=== PATIENT | female | born 1935 | race Caucasian/White ===

== ENCOUNTER → 2017-01-29 | Outpatient (CLI) | payer MEDICARE, BC ==
[~2017-01-29] MED LIST: DIAZ5TAB PO; IBUP-1222 PO; LEVO100T
== END | disposition home or self-care (01) ==
LOC: CFH 13:46
PROVIDERS: ATTEND Family Medicine
DX: J47.9 Bronchiectasis, uncomplicated (principal); R91.1 Solitary pulmonary nodule; M41.86 Other forms of scoliosis, lumbar region; R93.8 Abnormal findings on diagnostic imaging of other specified body structures
CPT/HCPCS: 71250

== ENCOUNTER → 2017-02-18 | Outpatient (CLI) | payer MEDICARE, BC | END | disposition home or self-care (01) | LOC: CARD 13:10 | PROVIDERS: ATTEND Family Medicine | DX: J84.10 Pulmonary fibrosis, unspecified (principal) | CPT/HCPCS: 94060; 94726; 94729 ==

== ENCOUNTER 2019-04-15 15:31 | Outpatient (CLI) | payer MEDICARE, BC ==
[~2019-04-15 15:31] MED LIST changes: +GABA300C10 PO; +OTHER; +PREG100C PO
== END 2019-04-15 23:59 | disposition home or self-care (01) ==
LOC: CFH 15:31
PROVIDERS: ATTEND Physician Assistant
DX: J84.9 Interstitial pulmonary disease, unspecified (principal); R91.1 Solitary pulmonary nodule; J47.9 Bronchiectasis, uncomplicated; Z87.891 Personal history of nicotine dependence
CPT/HCPCS: 71250

== ENCOUNTER 2019-05-26 16:39 | Inpatient (IN) | payer MEDICARE, BC ==
[~2019-05-26] VITALS: Ht 165.1 cm; Wt 60.5 kg
--- NOTE | 2019-05-26 17:11 | NUR ---
Pt arrives to ed with generalized weakness and increasing shortness of breath. Per pts family since she had pneumonia this year the pt has not recovered well. Pt has lincoln movements but baseline per family. Pt is a/ox4 and normally independant but has needed more help lately to do things. Pt connected to monitors and call light in reach. Awaiting further orders.
[2019-05-26] MEDS ORDERED: SODIUM CHLORIDE 0.9% 1,000 ML IV ONE (17:34)
--- NOTE | 2019-05-26 17:54 | NUR ---
BREAK NOTE: PT. IS RESTING WITH THE CP MONITOR IN PLACE. IV ACCESS ESTABLISHED AND NS IS INFUSING ORDERED. PT. IS RESTING WITH THE SIDERAILS UP X 2 AND THE CALL LIGHT IS IN PLACE. FAMILY IS AT THE BEDSIDE.
[2019-05-26] MEDS ORDERED: SODIUM CHLORIDE FLUSH 10ML SYR IVF ONE (18:00)
[2019-05-26 18:26] LABS: BASOPHILS % (AUTO) 0 % (0-1); EOSINOPHILS # (AUTO) 0.24 x10^3/uL (0-0.4); EOSINOPHILS % (AUTO) 2 % (1-7); LYMPHOCYTES # (AUTO) 0.61 x10^3/uL (1-3.4); LYMPHOCYTES % (AUTO) 5 % (22-44); MD NO; MEAN CORPUSCULAR HGB CONC 32.9 g/dL (32.4-35.8); MEAN CORPUSCULAR VOLUME 91.4 fL (80-100); MEAN PLATELET VOLUME 7.2 fL (7.4-10.4); MONOCYTES # (AUTO) 0.45 x10^3/uL (0.2-0.8); MONOCYTES % (AUTO) 4 % (2-9); NEUTROPHILS # (AUTO) 11.65 x10^3/uL (1.8-6.8); NEUTROPHILS % (AUTO) 90 % (42-75); PLATELET COUNT 470 x10^3/uL (130-400); RED BLOOD COUNT 3.93 x10^6/uL (3.82-5.3); RED CELL DISTRIBUTION WIDTH 14.2 % (9.6-15.2)
[2019-05-26] MEDS ORDERED: AZITHROMYCIN 500 MG in SODIUM CHLORIDE 0.9% 250 ML IV ONE (18:30)
[2019-05-26] MEDS ORDERED: CEFTRIAXONE PMX 1GM/50ML 50 ML IV ONE (18:30)
[2019-05-26 18:36] LABS: INTERNATIONAL NORMALIZED RATIO 1.01 (0.93-1.1); PROTHROMBIN TIME 10.6 Seconds (9.6-11.5)
[2019-05-26 18:37] LABS: ALANINE AMINOTRANSFERASE 26 U/L (12-78); ALBUMIN 1.9 g/dL (3.4-5.0); ANION GAP 8 mmol/L (5-15); CALCIUM 8.3 mg/dL (8.5-10.1); CHLORIDE 104 mmol/L (98-107); CREATININE 2.28 mg/dL (0.55-1.02)
[2019-05-26 18:39] LABS: ALKALINE PHOSPHATASE 104 U/L (45-117); BILIRUBIN,TOTAL 0.5 mg/dL (0.2-1.0); TOTAL PROTEIN 6.2 g/dL (6.4-8.2)
--- NOTE | 2019-05-26 18:54 | NUR ---
Pt BRI Omer [phone] home and [phone] cell
[2019-05-26] MEDS ORDERED: CEFTRIAXONE PMX 1GM/50ML 50 ML ONE (19:04)
[2019-05-26] MEDS ORDERED: ACETAMINOPHEN 325 MG TABLET PO PRN (19:30)
[2019-05-26] MEDS ORDERED: ALBUTEROL/IPRATROPIUM 2.5MG/0.5MG, 3 ML HHN PRN (19:30)
--- NOTE | 2019-05-26 19:46 | NUR ---
report to rosa dukes
[2019-05-26 20:18] VITALS: BP 130/71
[2019-05-26 22:08] LABS: RAPID INFLUENZA A Negative (Negative); RAPID INFLUENZA B Negative (Negative)
[2019-05-26 22:26] LABS: CULTURE INDICATED? YES; MICROSCOPIC INDICATED
[2019-05-27 02:41] VITALS: BP 105/63
[2019-05-27 05:32] LABS: BASOPHILS # (AUTO) 0.04 x10^3/uL (0-0.1); BASOPHILS % (AUTO) 0 % (0-1); EOSINOPHILS % (AUTO) 3 % (1-7); LYMPHOCYTES # (AUTO) 0.49 x10^3/uL (1-3.4); LYMPHOCYTES % (AUTO) 4 % (22-44); MD NO; MEAN CORPUSCULAR HEMOGLOBIN 30.6 pg (27.0-34.8); MEAN CORPUSCULAR HGB CONC 33.4 g/dL (32.4-35.8); MEAN CORPUSCULAR VOLUME 91.7 fL (80-100); MEAN PLATELET VOLUME 7.5 fL (7.4-10.4); MONOCYTES # (AUTO) 0.55 x10^3/uL (0.2-0.8); MONOCYTES % (AUTO) 5 % (2-9); NEUTROPHILS # (AUTO) 10.56 x10^3/uL (1.8-6.8); NEUTROPHILS % (AUTO) 88 % (42-75); PLATELET COUNT 422 x10^3/uL (130-400); RED BLOOD COUNT 3.64 x10^6/uL (3.82-5.3); RED CELL DISTRIBUTION WIDTH 14.3 % (9.6-15.2)
[2019-05-27 05:46] LABS: ANION GAP 5 mmol/L (5-15); CALCIUM 7.8 mg/dL (8.5-10.1); CHLORIDE 106 mmol/L (98-107)
[2019-05-27 05:58] LABS: CREATININE 2.12 mg/dL (0.55-1.02)
[2019-05-27] MEDS: LEVOTHYROXINE 100 MCG TABLET PO SCH (06:29)
[2019-05-27 07:05] VITALS: BP 109/56
[2019-05-27] MEDS ORDERED: LEVOFLOXACIN/PMX 750MG/150ML 150 ML IV SCH (08:00)
[2019-05-27] MEDS: GABAPENTIN 300 MG CAPSULE PO SCH (08:31)
[2019-05-27] MEDS: GUAIFENESIN 200 MG TABLET PO SCH ×3 (11:01→21:58)
[2019-05-27] MEDS ORDERED: ALBUTEROL SULFATE 2.5 MG/3 ML NPPB PRN (11:30)
[2019-05-27] MEDS ORDERED: PHARMACY MAY ADJ FOR RENAL FX MC PRN (12:00)
[2019-05-27] MEDS: SODIUM CHLORIDE 0.9% 1,000 ML IV SCH (12:24)
[2019-05-27] MEDS: CEFTRIAXONE PMX 1GM/50ML 50 ML IV SCH (12:24)
[2019-05-27] MEDS: HEPARIN 5,000 UNITS/ML, 1ML SQ SCH ×2 (12:30→21:58)
[2019-05-27] MEDS: DOXYCYCLINE 100 MG in DEXTROSE 5% 250 ML IV SCH (13:15)
[2019-05-27 14:00] VITALS: BP 124/69
[2019-05-27 16:02] VITALS: BP 124/69
[2019-05-27 19:31] VITALS: BP 156/64
[2019-05-27] MEDS: ONDANSETRON 2MG/ML, 2ML IVPush PRN (22:03)
[2019-05-28] MEDS: DOXYCYCLINE 100 MG in DEXTROSE 5% 250 ML IV SCH ×3 (00:45→22:49)
[2019-05-28 03:00] VITALS: BP 184/88
[2019-05-28 03:21] VITALS: BP 150/75
[2019-05-28] MEDS: GUAIFENESIN 200 MG TABLET PO SCH (05:47)
[2019-05-28] MEDS: LEVOTHYROXINE 100 MCG TABLET PO SCH (05:47)
[2019-05-28] MEDS: HEPARIN 5,000 UNITS/ML, 1ML SQ SCH ×3 (05:48→22:23)
[2019-05-28 05:52] VITALS: BP 152/74
[2019-05-28 06:14] LABS: BASOPHILS # (AUTO) 0.02 x10^3/uL (0-0.1); BASOPHILS % (AUTO) 0 % (0-1); EOSINOPHILS # (AUTO) 0.15 x10^3/uL (0-0.4); EOSINOPHILS % (AUTO) 2 % (1-7); LYMPHOCYTES # (AUTO) 0.58 x10^3/uL (1-3.4); LYMPHOCYTES % (AUTO) 5 % (22-44); MD NO; MEAN CORPUSCULAR HGB CONC 32.8 g/dL (32.4-35.8); MEAN CORPUSCULAR VOLUME 91.7 fL (80-100); MEAN PLATELET VOLUME 7.3 fL (7.4-10.4); MONOCYTES # (AUTO) 0.48 x10^3/uL (0.2-0.8); MONOCYTES % (AUTO) 5 % (2-9); NEUTROPHILS # (AUTO) 9.35 x10^3/uL (1.8-6.8); NEUTROPHILS % (AUTO) 88 % (42-75); PLATELET COUNT 433 x10^3/uL (130-400); RED BLOOD COUNT 3.81 x10^6/uL (3.82-5.3); RED CELL DISTRIBUTION WIDTH 14.3 % (9.6-15.2)
[2019-05-28 06:22] LABS: ANION GAP 9 mmol/L (5-15); CALCIUM 7.9 mg/dL (8.5-10.1); CHLORIDE 102 mmol/L (98-107); CREATININE 2.28 mg/dL (0.55-1.02)
[2019-05-28 07:30] VITALS: BP 153/69
[2019-05-28] MEDS: SODIUM CHLORIDE 0.9% 1,000 ML IV SCH (08:00)
[2019-05-28] MEDS: ONDANSETRON 2MG/ML, 2ML IVPush PRN (09:03)
[2019-05-28] MEDS: GABAPENTIN 300 MG CAPSULE PO SCH (09:03)
[2019-05-28] MEDS: CEFTRIAXONE PMX 1GM/50ML 50 ML IV SCH (11:15)
[2019-05-28 13:10] VITALS: BP 134/66
[2019-05-28 19:35] VITALS: BP 145/75
[2019-05-28] MEDS: GUAIFENESIN ER 600 MG TABLET PO SCH (20:17)
[2019-05-29] MEDS: SODIUM CHLORIDE 0.9% 1,000 ML IV SCH ×2 (01:29→11:52)
[2019-05-29 01:42] VITALS: BP 132/61
[2019-05-29] MEDS ORDERED: LEVOTHYROXINE 100 MCG TABLET PO SCH (06:00)
[2019-05-29] MEDS: LEVOTHYROXINE 112 MCG TABLET PO SCH (06:05)
[2019-05-29] MEDS: HEPARIN 5,000 UNITS/ML, 1ML SQ SCH ×3 (06:06→23:01)
[2019-05-29 07:00] LABS: MEAN CORPUSCULAR HEMOGLOBIN 29.8 pg (27.0-34.8); MEAN CORPUSCULAR HGB CONC 32.4 g/dL (32.4-35.8); MEAN PLATELET VOLUME 7.4 fL (7.4-10.4); PLATELET COUNT 512 x10^3/uL (130-400); RED BLOOD COUNT 3.73 x10^6/uL (3.82-5.3); RED CELL DISTRIBUTION WIDTH 14.5 % (9.6-15.2)
[2019-05-29 07:10] LABS: ANION GAP 9 mmol/L (5-15); CALCIUM 7.8 mg/dL (8.5-10.1); CHLORIDE 105 mmol/L (98-107)
[2019-05-29 07:11] LABS: CREATININE 2.44 mg/dL (0.55-1.02)
[2019-05-29 07:31] LABS: BASOPHILS # (AUTO) 0.02 x10^3/uL (0-0.1); BASOPHILS % (AUTO) 0 % (0-1); EOSINOPHILS # (AUTO) 0.16 x10^3/uL (0-0.4); EOSINOPHILS % (AUTO) 1 % (1-7); LYMPHOCYTES # (AUTO) 0.61 x10^3/uL (1-3.4); LYMPHOCYTES % (AUTO) 5 % (22-44); MD SCAN; MONOCYTES # (AUTO) 0.56 x10^3/uL (0.2-0.8); MONOCYTES % (AUTO) 5 % (2-9); NEUTROPHILS # (AUTO) 9.98 x10^3/uL (1.8-6.8); NEUTROPHILS % (AUTO) 88 % (42-75)
[2019-05-29 08:00] VITALS: BP 153/72
[2019-05-29] MEDS: GABAPENTIN 300 MG CAPSULE PO SCH (08:39)
[2019-05-29] MEDS: GUAIFENESIN ER 600 MG TABLET PO SCH ×2 (08:39→21:11)
[2019-05-29] MEDS: ONDANSETRON 2MG/ML, 2ML IVPush PRN (08:52)
[2019-05-29] MEDS ORDERED: ONDANSETRON ODT 4 MG PO PRN (09:30)
[2019-05-29] MEDS ORDERED: PROMETHAZINE 25 MG/ML, 1ML ONE (10:28)
[2019-05-29] MEDS ORDERED: PROMETHAZINE 25 MG/ML, 1ML IM PRN (10:30)
[2019-05-29] MEDS ORDERED: POLYETHYLENE GLYCOL 17 GM PACKET PO ONE (11:30)
[2019-05-29] MEDS ORDERED: SENNA/DOCUSATE TABLET PO PRN (11:30)
[2019-05-29] MEDS: CEFTRIAXONE PMX 1GM/50ML 50 ML IV SCH (11:52)
[2019-05-29 14:00] VITALS: BP 145/80
[2019-05-29] MEDS: DOXYCYCLINE 100 MG in DEXTROSE 5% 250 ML IV SCH (16:17)
[2019-05-29 19:06] VITALS: BP 146/72
[2019-05-30 00:35] VITALS: BP 150/71
[2019-05-30] MEDS: SODIUM CHLORIDE 0.9% 1,000 ML IV SCH ×2 (01:03→10:20)
[2019-05-30] MEDS: DOXYCYCLINE 100 MG in DEXTROSE 5% 250 ML IV SCH ×2 (05:02→16:35)
[2019-05-30 05:27] LABS: BASOPHILS # (AUTO) 0.01 x10^3/uL (0-0.1); BASOPHILS % (AUTO) 0 % (0-1); EOSINOPHILS % (AUTO) 0 % (1-7); LYMPHOCYTES # (AUTO) 0.53 x10^3/uL (1-3.4); LYMPHOCYTES % (AUTO) 5 % (22-44); MD NO; MEAN CORPUSCULAR HGB CONC 32.7 g/dL (32.4-35.8); MEAN CORPUSCULAR VOLUME 91.8 fL (80-100); MEAN PLATELET VOLUME 7.7 fL (7.4-10.4); MONOCYTES # (AUTO) 0.31 x10^3/uL (0.2-0.8); MONOCYTES % (AUTO) 3 % (2-9); NEUTROPHILS # (AUTO) 10.03 x10^3/uL (1.8-6.8); NEUTROPHILS % (AUTO) 92 % (42-75); PLATELET COUNT 459 x10^3/uL (130-400); RED BLOOD COUNT 3.52 x10^6/uL (3.82-5.3); RED CELL DISTRIBUTION WIDTH 13.9 % (9.6-15.2)
[2019-05-30 05:37] LABS: ANION GAP 9 mmol/L (5-15); CALCIUM 7.7 mg/dL (8.5-10.1); CHLORIDE 107 mmol/L (98-107)
[2019-05-30] MEDS: HEPARIN 5,000 UNITS/ML, 1ML SQ SCH ×3 (05:55→23:05)
[2019-05-30] MEDS: LEVOTHYROXINE 112 MCG TABLET PO SCH ×2 (05:55→05:59)
[2019-05-30 06:01] VITALS: BP 131/58
[2019-05-30] MEDS: GUAIFENESIN ER 600 MG TABLET PO SCH ×2 (08:27→21:18)
[2019-05-30] MEDS: GABAPENTIN 300 MG CAPSULE PO SCH (08:27)
[2019-05-30] MEDS: CEFTRIAXONE PMX 1GM/50ML 50 ML IV SCH (10:58)
[2019-05-30 14:09] VITALS: BP 139/66
[2019-05-30 20:48] VITALS: BP 154/66
[2019-05-31 01:53] VITALS: BP 148/74
[2019-05-31] MEDS: DOXYCYCLINE 100 MG in DEXTROSE 5% 250 ML IV SCH (04:44)
[2019-05-31] MEDS: LEVOTHYROXINE 112 MCG TABLET PO SCH (05:20)
[2019-05-31 05:35] LABS: BASOPHILS % (AUTO) 0 % (0-1); EOSINOPHILS % (AUTO) 0 % (1-7); LYMPHOCYTES # (AUTO) 0.75 x10^3/uL (1-3.4); LYMPHOCYTES % (AUTO) 6 % (22-44); MD NO; MEAN CORPUSCULAR HEMOGLOBIN 29.8 pg (27.0-34.8); MEAN CORPUSCULAR VOLUME 90.6 fL (80-100); MEAN PLATELET VOLUME 7.7 fL (7.4-10.4); MONOCYTES # (AUTO) 0.34 x10^3/uL (0.2-0.8); MONOCYTES % (AUTO) 3 % (2-9); NEUTROPHILS # (AUTO) 11.07 x10^3/uL (1.8-6.8); NEUTROPHILS % (AUTO) 91 % (42-75); PLATELET COUNT 563 x10^3/uL (130-400); RED BLOOD COUNT 3.64 x10^6/uL (3.82-5.3); RED CELL DISTRIBUTION WIDTH 14.6 % (9.6-15.2)
[2019-05-31 07:11] VITALS: BP 164/69
[2019-05-31 07:14] LABS: ANION GAP 10 mmol/L (5-15); CALCIUM 8.1 mg/dL (8.5-10.1); CHLORIDE 106 mmol/L (98-107); CREATININE 2.43 mg/dL (0.55-1.02)
[2019-05-31] MEDS: GUAIFENESIN ER 600 MG TABLET PO SCH (08:44)
[2019-05-31] MEDS: HEPARIN 5,000 UNITS/ML, 1ML SQ SCH (08:44)
[2019-05-31] MEDS: GABAPENTIN 300 MG CAPSULE PO SCH (08:44)
[2019-05-31] MEDS ORDERED: DOXY-162 PO (11:47)
[2019-05-31] MEDS ORDERED: ACET325T26 PO (11:47)
[2019-05-31] MEDS ORDERED: PRED10TA PO (11:47)
[2019-05-31] MEDS ORDERED: CEFD300C37 PO (11:47)
[2019-05-31] MEDS ORDERED: GUAI600T31 PO (11:47)
[2019-05-31] MEDS ORDERED: LEVO112T2 PO (11:47)
[2019-05-31] MEDS: CEFTRIAXONE PMX 1GM/50ML 50 ML IV SCH (12:44)
== END 2019-05-31 14:13 | DRG 871 ==
LOC: ED 18:05 → EDIP 18:49 → 3N 20:04
PROVIDERS: ADMIT Internal Medicine; ATTEND Internal Medicine
PROC: 0T9B70Z Drainage of Bladder with Drainage Device, Via Natural or Artificial Opening (ICD-10-PCS; principal; 2019-05-26)
DX: A41.9 Sepsis, unspecified organism (principal); J18.1 Lobar pneumonia, unspecified organism; N17.0 Acute kidney failure with tubular necrosis; E03.9 Hypothyroidism, unspecified; G89.29 Other chronic pain; I07.1 Rheumatic tricuspid insufficiency; I35.1 Nonrheumatic aortic (valve) insufficiency; I44.4 Left anterior fascicular block; J84.10 Pulmonary fibrosis, unspecified; M06.9 Rheumatoid arthritis, unspecified; Z88.0 Allergy status to penicillin; Z66 Do not resuscitate; Z82.49 Family history of ischemic heart disease and other diseases of the circulatory system; Z90.710 Acquired absence of both cervix and uterus
CPT/HCPCS: 36415; 71045; 71250; 76770; 80048; 80053; 81001; 82550; 83605; 83735; 84100; 84145; 84439; 84443; 85025; 85610; 85730; 87040; 87086; 87205; 87400; 93005; 93306; 96361; 96365; 96368; G0378; J0456; J0696; J1644; J1956; J2405; J2550; J7060; J7620; J7030; J7050; J7512